=== PATIENT | male | born 1975 | race Caucasian/White ===

== ENCOUNTER 2019-09-26 01:59 | Emergency (ER) | payer MEDICAID, OTHER ==
[~2019-09-26] VITALS: Ht 198.1 cm; Wt 136.4 kg
[2019-09-26] MEDS ORDERED: MUPI22OI30 TOP (02:12)
[2019-09-26] MEDS ORDERED: PRED10TA23 PO (02:12)
[2019-09-26] MEDS ORDERED: triamcinolone acetonide 40mg/ml inj IM ONE (02:25)
[2019-09-26 02:33] VITALS: BP 152/97
== END 2019-09-26 02:35 | disposition home or self-care (01) ==
LOC: ER 01:59
DX: R21 Rash and other nonspecific skin eruption (principal); Z79.899 Other long term (current) drug therapy
CPT/HCPCS: 96372; 99283; J3301

== ENCOUNTER 2019-11-17 01:45 | Inpatient (IN) | payer MEDICAID ==
[~2019-11-17] VITALS: Ht 198.1 cm; Wt 140.0 kg
[2019-11-17] MEDS ORDERED: ibuprofen tablet 400 MG TABLET PO ONE (02:50)
--- NOTE | 2019-11-17 03:35 | NUR ---
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
[2019-11-17 04:30] LABS: BASOPHILS # (AUTO) 0.3 X10'3 (0-0.2); BASOPHILS % (AUTO) 1.6 % (0-1); EOSINOPHILS # (AUTO) 1.1 X10'3 (0-0.9); EOSINOPHILS % (AUTO) 6.5 % (0-6); HEMATOCRIT 46.3 % (42.0-52.0); HEMOGLOBIN 15.4 g/dl (14.0-17.9); LYMPHOCYTES # (AUTO) 3.7 X10'3 (1.1-4.8); MEAN CORPUSCULAR HGB CONC 33.3 g/dL (33.0-36.5); MEAN CORPUSCULAR VOLUME 92.9 FL (78-98); MEAN PLATELET VOLUME 9.3 FL (7.4-10.4); MONOCYTES # (AUTO) 1.8 X10'3 (0-0.9); NEUTROPHILS # (AUTO) 9.9 X10'3 (1.8-7.7); NEUTROPHILS % (AUTO) 58.9 % (42-75); PLATELET COUNT 310 X10'3 (140-440); RED BLOOD COUNT 4.99 X10'6 (4.70-6.10); WHITE BLOOD COUNT 16.8 X10'3 (4.5-11.0)
[2019-11-17 04:43] LABS: D-DIMER 3.89 MG/L FEU (0-0.50); PARTIAL THROMBOPLASTIN TIME 29 SECONDS (22-32)
[2019-11-17 04:45] LABS: ALANINE AMINOTRANSFERASE 19 U/L (12-78); ALBUMIN 3.2 G/DL (3.4-5.0); ALBUMIN/GLOBULIN RATIO 0.8 (1.1-1.5); ALKALINE PHOSPHATASE 102 IU/L (46-116); ANION GAP 7 (8-16); ASPARTATE AMINO TRANSFERASE 20 U/L (10-37); BILIRUBIN,TOTAL 0.4 MG/DL (0.1-1.0); BLOOD UREA NITROGEN 23 MG/DL (7-18); BUN/CREATININE RATIO 21.3 (5.4-32.0); CALCIUM 8.9 MG/DL (8.5-10.1); CHLORIDE 107 MMOL/L (99-107); CREATININE 1.08 MG/DL (0.60-1.10); GLUCOSE 123 MG/DL (70-104); SODIUM 140 MMOL/L (135-145); TOTAL CARBON DIOXIDE 26.3 MMOL/L (24-32); TOTAL PROTEIN 7.4 G/DL (6.4-8.2); eGFR 74 ML/MIN
[2019-11-17] MEDS ORDERED: iohexol 350MG/ML 100ml bottle IV ONE (05:11)
[2019-11-17] MEDS ORDERED: heparin 10,000 units/1 ML INJ IV ONE ×2 (06:20→06:30)
[2019-11-17] MEDS: heparin 25,000 UNIT/250ml bag 250 ML IV SCH ×4 (06:40→20:33)
--- NOTE | 2019-11-17 07:15 | NUR ---
Assessed patient, denies pain and expressed how tired he was. Closed door to let patient sleep.
[2019-11-17] MEDS: normal saline 1000ml 1,000 ML IV SCH ×2 (08:13→20:34)
[2019-11-17] MEDS ORDERED: morphine 2 MG/ML inj. syringe IV PRN (08:15)
[2019-11-17] MEDS ORDERED: mag hydrox/Alum hydrox/simeth 30ml oral suspension PO PRN (08:15)
[2019-11-17] MEDS ORDERED: acetaminophen 325mg tablet PO PRN (08:15)
[2019-11-17] MEDS ORDERED: ondansetron/PF 4mg/2ml inj IV PRN (08:15)
[2019-11-17] MEDS ORDERED: magnesium hydroxide 30ml (MOM) UD suspension PO PRN (08:15)
[2019-11-17] MEDS ORDERED: LISI-604 PO (08:45)
--- NOTE | 2019-11-17 08:47 | NUR ---
Patient resting in bed with eyes closed. Will begin IVF's once he's awake.
--- NOTE | 2019-11-17 09:15 | NUR ---
Patient in room ED 6. I have received report from Marilynn LEIJA and had the opportunity to ask questions and assume patient care.
--- NOTE | 2019-11-17 09:20 | NUR ---
Called report to Landon LEIJA, patient to tx to room 3020 A.
--- NOTE | 2019-11-17 09:33 | NUR ---
Escorted up to tele room 3020 A at this time.
--- NOTE | 2019-11-17 09:34 | NUR ---
Received report from ED nurse and now awaiting Pt's arrival to room 3020.
--- NOTE | 2019-11-17 09:56 | NUR ---
Pt arrived to room. Pt oriented to room and call light light. Pt's vitals stable.
[2019-11-17 11:00] VITALS: BP 150/85
--- NOTE | 2019-11-17 13:30 | NUR ---
Pt's PTT 102. Holding Heparin infusion for 1 hour and then will decrease rate to 1800units/hour.
[2019-11-17 15:00] VITALS: BP 158/91
[2019-11-17 18:00] VITALS: BP 171/107
--- NOTE | 2019-11-17 18:00 | NUR ---
Orientee documentation: I have reviewed and agree with all interventions, assessments performed and documented by Darcie LEIJA.
--- NOTE | 2019-11-17 18:11 | NUR ---
Patient in room PCU 3020. I have received report from Darcie Rn and Landon RN and had the opportunity to ask questions and assume patient care.
--- NOTE | 2019-11-17 18:19 | NUR ---
Problems reprioritized. Patient report given, questions answered & plan of care reviewed with Jeanette LEIJA.
[2019-11-17 18:45] VITALS: BP 144/86
[2019-11-17 22:00] VITALS: BP 140/89
[2019-11-17] MEDS: HYDROcodone/acetaminophen 5mg/325mg tablet PO PRN (23:54)
[2019-11-18 01:46] LABS: BASOPHILS # (AUTO) 0.2 X10'3 (0-0.2); BASOPHILS % (AUTO) 1.3 % (0-1); EOSINOPHILS # (AUTO) 1.2 X10'3 (0-0.9); EOSINOPHILS % (AUTO) 6.8 % (0-6); HEMATOCRIT 47.5 % (42.0-52.0); HEMOGLOBIN 15.6 g/dl (14.0-17.9); LYMPHOCYTES # (AUTO) 4.8 X10'3 (1.1-4.8); LYMPHOCYTES % (AUTO) 26.9 % (21-51); MEAN CORPUSCULAR HEMOGLOBIN 30.7 PG (27.0-31.0); MEAN CORPUSCULAR HGB CONC 32.8 g/dL (33.0-36.5); MEAN CORPUSCULAR VOLUME 93.5 FL (78-98); MONOCYTES # (AUTO) 1.8 X10'3 (0-0.9); MONOCYTES % (AUTO) 10.1 % (2-12); NEUTROPHILS # (AUTO) 9.7 X10'3 (1.8-7.7); NEUTROPHILS % (AUTO) 54.9 % (42-75); PLATELET COUNT 291 X10'3 (140-440); RED BLOOD COUNT 5.08 X10'6 (4.70-6.10); RED CELL DISTRIBUTION WIDTH 14.2 % (11.5-14.5); WHITE BLOOD COUNT 17.7 X10'3 (4.5-11.0)
[2019-11-18 01:49] LABS: ALBUMIN 2.9 G/DL (3.4-5.0); ANION GAP 8 (8-16); BLOOD UREA NITROGEN 20 MG/DL (7-18); BUN/CREATININE RATIO 20.8 (5.4-32.0); CALCIUM 8.7 MG/DL (8.5-10.1); CHLORIDE 108 MMOL/L (99-107); CREATININE 0.96 MG/DL (0.60-1.10); GLUCOSE 88 MG/DL (70-104); POTASSIUM 3.9 MMOL/L (3.5-5.1); SODIUM 141 MMOL/L (135-145); eGFR 84 ML/MIN
[2019-11-18] MEDS: normal saline 1000ml 1,000 ML IV SCH ×3 (04:13→19:48)
--- NOTE | 2019-11-18 05:59 | NUR ---
Patient in room PCU 3020. I have received report from HELADIO Bautista and had the opportunity to ask questions and assume patient care.
[2019-11-18 06:00] VITALS: BP 132/81
--- NOTE | 2019-11-18 06:10 | NUR ---
Patient in room PCU 3020. I have received report from Jeanette LEIJA and had the opportunity to ask questions and assume patient care. Patient laying in bed, awake, alert, no signs of distress, no complaints at this time. Will continue to monitor.
--- NOTE | 2019-11-18 06:58 | NUR ---
Patient in room PCU 3020. I have received report from Lily LEIJA and had the opportunity to ask questions and assume patient care.
[2019-11-18] MEDS: lisinopril 5mg tablet PO SCH (07:43)
[2019-11-18] MEDS: HYDROcodone/acetaminophen 5mg/325mg tablet PO PRN (07:43)
[2019-11-18] MEDS: clindamycin 150mg capsule PO SCH ×2 (14:00→19:49)
[2019-11-18] MEDS: ibuprofen tablet 400 MG TABLET PO PRN ×2 (14:16→21:01)
[2019-11-18] MEDS: heparin 10,000 units/1 ML INJ IV PRN (14:37)
[2019-11-18] MEDS: heparin 25,000 UNIT/250ml bag 250 ML IV SCH ×2 (14:38→22:17)
[2019-11-18 15:00] VITALS: BP 114/67
[2019-11-18 15:04] VITALS: BP 114/67
[2019-11-18 18:00] VITALS: BP 135/83
--- NOTE | 2019-11-18 18:00 | NUR ---
Student Medication Administration: For this medication-pass time frame, all medication were reviewed, dispensed, administered and documented per hospital policy by Patricia. Student documentation: I have reviewed and agree with all interventions, assessments performed and documented by Patricia BRAVO.
--- NOTE | 2019-11-18 18:30 | NUR ---
Problems reprioritized. Patient report given, questions answered & plan of care reviewed with Sasha LEIJA.
--- NOTE | 2019-11-18 18:58 | NUR ---
Patient in room PCU 3020. I have received report from Lily Cameron RN and had the opportunity to ask questions and assume patient care.
[2019-11-18 22:00] VITALS: BP 126/57
[2019-11-19] MEDS: clindamycin 150mg capsule PO SCH ×3 (01:41→13:11)
[2019-11-19 02:00] VITALS: BP 118/70
[2019-11-19] MEDS: HYDROcodone/acetaminophen 5mg/325mg tablet PO PRN (04:10)
[2019-11-19] MEDS: normal saline 1000ml 1,000 ML IV SCH (04:11)
[2019-11-19 05:17] LABS: BASOPHILS # (AUTO) 0.3 X10'3 (0-0.2); BASOPHILS % (AUTO) 1.6 % (0-1); EOSINOPHILS # (AUTO) 1.1 X10'3 (0-0.9); HEMATOCRIT 44.5 % (42.0-52.0); HEMOGLOBIN 15.2 g/dl (14.0-17.9); LYMPHOCYTES # (AUTO) 5.1 X10'3 (1.1-4.8); LYMPHOCYTES % (AUTO) 32.7 % (21-51); MEAN CORPUSCULAR HEMOGLOBIN 31.5 PG (27.0-31.0); MEAN CORPUSCULAR HGB CONC 34.2 g/dL (33.0-36.5); MEAN CORPUSCULAR VOLUME 91.9 FL (78-98); MEAN PLATELET VOLUME 9.1 FL (7.4-10.4); MONOCYTES # (AUTO) 1.6 X10'3 (0-0.9); MONOCYTES % (AUTO) 10.3 % (2-12); NEUTROPHILS # (AUTO) 7.6 X10'3 (1.8-7.7); NEUTROPHILS % (AUTO) 48.4 % (42-75); PLATELET COUNT 305 X10'3 (140-440); RED BLOOD COUNT 4.84 X10'6 (4.70-6.10); RED CELL DISTRIBUTION WIDTH 13.6 % (11.5-14.5); WHITE BLOOD COUNT 15.6 X10'3 (4.5-11.0)
[2019-11-19 05:20] LABS: ALBUMIN 2.8 G/DL (3.4-5.0); ANION GAP 4 (8-16); BLOOD UREA NITROGEN 17 MG/DL (7-18); BUN/CREATININE RATIO 16.7 (5.4-32.0); CALCIUM 8.4 MG/DL (8.5-10.1); CHLORIDE 110 MMOL/L (99-107); CREATININE 1.02 MG/DL (0.60-1.10); GLUCOSE 101 MG/DL (70-104); POTASSIUM 3.9 MMOL/L (3.5-5.1); SODIUM 142 MMOL/L (135-145); TOTAL CARBON DIOXIDE 27.7 MMOL/L (24-32); eGFR 79 ML/MIN
[2019-11-19] MEDS: heparin 10,000 units/1 ML INJ IV PRN (05:50)
[2019-11-19] MEDS: heparin 25,000 UNIT/250ml bag 250 ML IV SCH (05:51)
[2019-11-19 06:00] VITALS: BP 140/68
--- NOTE | 2019-11-19 06:00 | NUR ---
Patient in room PCU 3020. I have received report from Sasha LEIJA and had the opportunity to ask questions and assume patient care.
--- NOTE | 2019-11-19 06:16 | NUR ---
Problems reprioritized. Patient report given, questions answered & plan of care reviewed with HELADIO Navarrete.
--- NOTE | 2019-11-19 06:45 | NUR ---
Patient in room PCU 3020. I have received report from shift supervisor rn RN and had the opportunity to ask questions and assume patient care.
[2019-11-19] MEDS: lisinopril 5mg tablet PO SCH (07:04)
[2019-11-19] MEDS ORDERED: apixaban 5mg tablet PO ONE (10:15)
--- NOTE | 2019-11-19 10:30 | NUR ---
Per Dr. Moore; Give Pt 10mg Eliquis and then turn Heparin gtt off.
[2019-11-19] MEDS ORDERED: CLIN-97 PO (11:32)
[2019-11-19] MEDS ORDERED: APIX5TAB3 PO (11:32)
[2019-11-19 11:55] VITALS: BP 154/70
--- NOTE | 2019-11-19 13:02 | NUR ---
Pt ambulated 600 ft on RA with no assistive devices. Pt tolerated well. Minor SOB
--- NOTE | 2019-11-19 13:40 | NUR ---
Pt DC'd home with . IV removed, canula intact. Tele-box removed and returned to [employer]. Pt stable and vtals WNL upon DC. Pt alert and oriented. DC paperwork gone over [facility] Pt, allowed pt to ask questions concerning DC answer them. [facility] Addendum: 11/19/19 at 1414 by Landon Tapia RN Pt DC'd home with . IV removed, canula intact. Tele-box removed and returned to [employer]. Pt stable and vtals WNL upon DC. Pt alert and oriented. DC paperwork gone over [facility] Pt, allowed pt to ask questions concerning DC answer them. New medications sent to [facility] on [address]. Pt informed and educated about new medications as to when to take them next and what to expect. [facility] will call Pt to make follow up appt. Pt educated to refrain from heavy lifting and excerting himself while on blood thinners with Everardo. PE's and LLE DVT. Pt's belongings gathered and sent with Pt. Pt wheeled down to lobby in wheelchair by nurse. Pt left in private vehicle with for home.
[2019-11-19] MEDS ORDERED: lactobacillus rhamnosus 10,000 MMU CELLS/CAPSULE PO SCH (20:00)
== END 2019-11-19 13:35 | disposition home or self-care (01) | DRG 197 ==
LOC: ER 01:46 → ED HOLD 08:13 → PCU 3S 09:40 → UNDODISIN 09:52
PROVIDERS: ADMIT Family Medicine; ATTEND Family Medicine
PROC: B32T1ZZ Computerized Tomography (CT Scan) of Left Pulmonary Artery using Low Osmolar Contrast (ICD-10-PCS; principal; 2019-11-17)
PROC: B3201ZZ Computerized Tomography (CT Scan) of Thoracic Aorta using Low Osmolar Contrast (ICD-10-PCS; 2019-11-17)
PROC: B32S1ZZ Computerized Tomography (CT Scan) of Right Pulmonary Artery using Low Osmolar Contrast (ICD-10-PCS; 2019-11-17)
DX: I82.432 Acute embolism and thrombosis of left popliteal vein (principal); I26.99 Other pulmonary embolism without acute cor pulmonale; D72.829 Elevated white blood cell count, unspecified; I10 Essential (primary) hypertension; L01.00 Impetigo, unspecified; I82.442 Acute embolism and thrombosis of left tibial vein
CPT/HCPCS: 36415; 71045; 71275; 80048; 80053; 85025; 85379; 85610; 85730; 87070; 87077; 87081; 87186; 93005; 93306; 93971; 99285; G0378; J1644; J7030; Q9967

== ENCOUNTER 2019-11-30 11:00 | Outpatient (CLI) | payer MEDICAID ==
[~2019-11-30 11:00] MED LIST: APIX5TAB3 PO; CLIN-97 PO; LISI-604 PO
== END 2019-11-30 11:50 | disposition home or self-care (01) ==
LOC: EDSTATUS 11:00 → WOUND CARE 11:00
PROVIDERS: ATTEND Nurse Practitioner
DX: I82.409 Acute embolism and thrombosis of unspecified deep veins of unspecified lower extremity (principal); R21 Rash and other nonspecific skin eruption; I10 Essential (primary) hypertension; L01.00 Impetigo, unspecified; Z86.718 Personal history of other venous thrombosis and embolism
CPT/HCPCS: G0463

== ENCOUNTER 2019-12-17 20:36 | Emergency (ER) | payer MEDICAID ==
[~2019-12-17] VITALS: Ht 198.1 cm; Wt 140.9 kg
[2019-12-17 21:20] LABS: BASOPHILS # (AUTO) 0.2 X10'3 (0-0.2); EOSINOPHILS # (AUTO) 0.3 X10'3 (0-0.9); HEMATOCRIT 44.5 % (42.0-52.0); HEMOGLOBIN 14.7 g/dl (14.0-17.9); LYMPHOCYTES % (AUTO) 34.3 % (21-51); MEAN CORPUSCULAR HEMOGLOBIN 30.7 PG (27.0-31.0); MEAN CORPUSCULAR HGB CONC 33.1 g/dL (33.0-36.5); MEAN CORPUSCULAR VOLUME 92.7 FL (78-98); MEAN PLATELET VOLUME 8.4 FL (7.4-10.4); MONOCYTES # (AUTO) 1.8 X10'3 (0-0.9); MONOCYTES % (AUTO) 10.4 % (2-12); NEUTROPHILS # (AUTO) 9.1 X10'3 (1.8-7.7); NEUTROPHILS % (AUTO) 52.3 % (42-75); PLATELET COUNT 325 X10'3 (140-440); RED CELL DISTRIBUTION WIDTH 14.5 % (11.5-14.5); WHITE BLOOD COUNT 17.4 X10'3 (4.5-11.0)
[2019-12-17 21:29] LABS: ALANINE AMINOTRANSFERASE 63 U/L (12-78); ALBUMIN/GLOBULIN RATIO 0.8 (1.1-1.5); ALKALINE PHOSPHATASE 93 IU/L (46-116); ANION GAP 4 (8-16); ASPARTATE AMINO TRANSFERASE 25 U/L (10-37); BILIRUBIN,TOTAL 0.4 MG/DL (0.1-1.0); BLOOD UREA NITROGEN 23 MG/DL (7-18); BUN/CREATININE RATIO 20.5 (5.4-32.0); CALCIUM 8.5 MG/DL (8.5-10.1); CHLORIDE 106 MMOL/L (99-107); CREATININE 1.12 MG/DL (0.60-1.10); GLUCOSE 140 MG/DL (70-104); POTASSIUM 4.2 MMOL/L (3.5-5.1); SODIUM 139 MMOL/L (135-145); TOTAL CARBON DIOXIDE 28.6 MMOL/L (24-32); TOTAL PROTEIN 6.6 G/DL (6.4-8.2); eGFR 71 ML/MIN
[2019-12-17] MEDS ORDERED: normal saline 1000ML IV soln IVB ONE (21:40)
--- NOTE | 2019-12-17 21:44 | NUR ---
[facility]ASC CALLED BACK AT 21:43 WILL BE HERE IN 30 MINS OR LESS
[2019-12-17] MEDS ORDERED: apixaban 5mg tablet PO STA (22:40)
[2019-12-18 01:44] VITALS: BP 132/78
== END 2019-12-18 01:48 | disposition home or self-care (01) ==
LOC: ER 20:36
DX: R07.9 Chest pain, unspecified (principal); R06.02 Shortness of breath; I10 Essential (primary) hypertension; Z98.890 Other specified postprocedural states; Z79.2 Long term (current) use of antibiotics; Z79.899 Other long term (current) drug therapy
CPT/HCPCS: 36415; 71045; 80053; 84484; 85025; 93005; 93971; 99285; J7030

== ENCOUNTER 2020-10-04 17:24 | Emergency (ER) | payer MEDICAID ==
[~2020-10-04] VITALS: Ht 198.1 cm; Wt 147.4 kg
[~2020-10-04 17:24] MED LIST changes: -LISI-604 PO; +LISI-790 PO
[2020-10-04 18:31] LABS: BASOPHILS # (AUTO) 0.2 X10'3 (0-0.2); BASOPHILS % (AUTO) 1.4 % (0-1); EOSINOPHILS # (AUTO) 0.7 X10'3 (0-0.9); EOSINOPHILS % (AUTO) 4.9 % (0-6); HEMATOCRIT 48.2 % (42.0-52.0); HEMOGLOBIN 16.3 g/dl (14.0-17.9); LYMPHOCYTES # (AUTO) 4.4 X10'3 (1.1-4.8); LYMPHOCYTES % (AUTO) 29.1 % (21-51); MEAN CORPUSCULAR HEMOGLOBIN 31.1 PG (27.0-31.0); MEAN CORPUSCULAR HGB CONC 33.8 g/dL (33.0-36.5); MEAN PLATELET VOLUME 9.4 FL (7.4-10.4); MONOCYTES # (AUTO) 1.5 X10'3 (0-0.9); MONOCYTES % (AUTO) 9.7 % (2-12); NEUTROPHILS # (AUTO) 8.3 X10'3 (1.8-7.7); NEUTROPHILS % (AUTO) 54.9 % (42-75); PLATELET COUNT 374 X10'3 (140-440); RED BLOOD COUNT 5.24 X10'6 (4.70-6.10); RED CELL DISTRIBUTION WIDTH 14.2 % (11.5-14.5); WHITE BLOOD COUNT 15.1 X10'3 (4.5-11.0)
[2020-10-04 18:41] LABS: ALANINE AMINOTRANSFERASE 26 U/L (12-78); ALBUMIN 3.6 G/DL (3.4-5.0); ALBUMIN/GLOBULIN RATIO 0.8 (1.1-1.5); ALKALINE PHOSPHATASE 107 IU/L (46-116); ANION GAP 10 (8-16); ASPARTATE AMINO TRANSFERASE 26 U/L (10-37); BILIRUBIN,TOTAL 0.4 MG/DL (0.1-1.0); BLOOD UREA NITROGEN 20 MG/DL (7-18); BUN/CREATININE RATIO 19.2 (5.4-32.0); CHLORIDE 103 MMOL/L (99-107); CREATININE 1.04 MG/DL (0.60-1.10); GLUCOSE 133 MG/DL (70-104); POTASSIUM 3.9 MMOL/L (3.5-5.1); SODIUM 139 MMOL/L (135-145); TOTAL CARBON DIOXIDE 26.1 MMOL/L (24-32); TOTAL PROTEIN 8.2 G/DL (6.4-8.2); eGFR 77 ML/MIN
[2020-10-04 20:47] LABS: D-DIMER 0.32 MG/L FEU (0-0.50)
[2020-10-04] MEDS ORDERED: DOXY100C43 PO (21:00)
[2020-10-04] MEDS ORDERED: ALBU8.5H8 IH (21:00)
[2020-10-04] MEDS ORDERED: PRED20TA PO (22:10)
[2020-10-04 22:43] VITALS: BP 147/98
== END 2020-10-04 22:25 | disposition home or self-care (01) ==
LOC: ER 17:24
DX: R07.89 Other chest pain (principal); J40 Bronchitis, not specified as acute or chronic; R06.02 Shortness of breath; R53.83 Other fatigue; I10 Essential (primary) hypertension; Z86.711 Personal history of pulmonary embolism; Z86.718 Personal history of other venous thrombosis and embolism; Z98.890 Other specified postprocedural states; Z79.2 Long term (current) use of antibiotics; Z79.899 Other long term (current) drug therapy
CPT/HCPCS: 36415; 71045; 71250; 80053; 83880; 84484; 85025; 85379; 93005; 99285

== ENCOUNTER 2022-05-14 19:12 | Emergency (ER) | payer MEDICAID ==
[~2022-05-14] VITALS: Ht 195.6 cm; Wt 143.9 kg
[~2022-05-14 19:12] MED LIST changes: +ALBU8.5H17 IH; -LISI-790 PO; +LISI5TAB22 PO
[2022-05-14 19:15] VITALS: BP 118/99
== END 2022-05-14 22:57 | disposition left against medical advice (07) ==
LOC: ER 19:13
DX: J00 Acute nasopharyngitis [common cold] (principal); R05.9 Cough, unspecified; R09.89 Other specified symptoms and signs involving the circulatory and respiratory systems; Z53.21 Procedure and treatment not carried out due to patient leaving prior to being seen by health care provider

== ENCOUNTER 2022-09-21 14:32 | Emergency (ER) | payer MEDICAID ==
[~2022-09-21] VITALS: Ht 198.1 cm; Wt 129.8 kg
[2022-09-21 14:42] VITALS: BP 149/89
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
[2022-09-21] MEDS ORDERED: ketorolac trometh inj. 60 MG/2 ML VIAL IM ONE (15:35)
[2022-09-21] MEDS ORDERED: diazepam 5mg tablet PO ONE (15:35)
[2022-09-21] MEDS ORDERED: TIZA-189 PO (15:39)
[2022-09-21] MEDS ORDERED: TEMA7.5C PO (15:39)
== END 2022-09-21 15:26 | disposition home or self-care (01) ==
LOC: ER 14:32
DX: M54.2 Cervicalgia (principal); M25.519 Pain in unspecified shoulder; I10 Essential (primary) hypertension; V49.9XXA Car occupant (driver) (passenger) injured in unspecified traffic accident, initial encounter; Y93.89 Activity, other specified; Y92.89 Other specified places as the place of occurrence of the external cause; Y99.8 Other external cause status
CPT/HCPCS: 96372; 99283; J1885

== ENCOUNTER 2023-04-08 20:14 | Emergency (ER) | payer MEDICAID ==
[~2023-04-08] VITALS: Ht 198.1 cm; Wt 140.7 kg
[~2023-04-08 20:14] MED LIST changes: +TEMA7.5C PO; +TIZA-189 PO
[2023-04-08 21:03] LABS: ALANINE AMINOTRANSFERASE 21 U/L (12-78); ALBUMIN 3.7 G/DL (3.4-5.0); ALBUMIN/GLOBULIN RATIO 0.9 (1.1-1.5); ALKALINE PHOSPHATASE 84 IU/L (46-116); ANION GAP 6 (8-16); ASPARTATE AMINO TRANSFERASE 17 U/L (10-37); BILIRUBIN,TOTAL 0.4 MG/DL (0.1-1.0); BLOOD UREA NITROGEN 21 MG/DL (7-18); BUN/CREATININE RATIO 19.4 (10.0-20.0); CALCIUM 9.2 MG/DL (8.5-10.1); CHLORIDE 103 MMOL/L (99-107); CREATININE 1.08 MG/DL (0.60-1.10); GLUCOSE 94 MG/DL (70-104); POTASSIUM 4.1 MMOL/L (3.5-5.1); SODIUM 140 MMOL/L (135-145); TOTAL CARBON DIOXIDE 30.6 MMOL/L (24-32); TOTAL PROTEIN 7.8 G/DL (6.4-8.2); eCRCL 106 ML/MIN; eGFR 72 ML/MIN
[2023-04-08 21:11] LABS: LIPASE 44 U/L (16-77)
--- NOTE | 2023-04-08 21:19 | NUR ---
CALL FROM LAB RECEIVED. LAB REDRAW NEEDED DUE TO BLOOD HEMOLYZED. PT CURRENTLY IN LOBBY. LAB NOTIFIED.
[2023-04-08 23:12] LABS: BILIRUBIN,URINE NEGATIVE (Neg); CLARITY,URINE CLEAR (Clear); COLOR,URINE YELLOW (Yellow); GLUCOSE, URINE NEGATIVE (Neg); KETONES,URINE NEGATIVE (Neg); LEUKOCYTE ESTERASE ,URINE NEGATIVE (Neg); NITRITES, URINE NEGATIVE (Neg); OCCULT BLOOD,URINE NEGATIVE (Neg); PROTEIN,URINE NEGATIVE (Neg); UROBILINOGEN,URINE 0.2 E.U/dL (0.2-1.0)
[2023-04-08 23:24] LABS: BASOPHILS % (AUTO) 0.2 % (0-1); EOSINOPHILS # (AUTO) 0.6 X10'3 (0-0.9); EOSINOPHILS % (AUTO) 3.7 % (0-6); HEMATOCRIT 46.4 % (42.0-52.0); HEMOGLOBIN 15.4 g/dl (14.0-17.9); LYMPHOCYTES % (AUTO) 24.5 % (21-51); MEAN CORPUSCULAR HEMOGLOBIN 30.6 PG (27.0-31.0); MEAN CORPUSCULAR HGB CONC 33.3 g/dL (33.0-36.5); MEAN PLATELET VOLUME 8.9 FL (7.4-10.4); MONOCYTES # (AUTO) 1.6 X10'3 (0-0.9); MONOCYTES % (AUTO) 9.7 % (2-12); NEUTROPHILS % (AUTO) 61.9 % (42-75); PLATELET COUNT 323 X10'3 (140-440); RED BLOOD COUNT 5.04 X10'6 (4.70-6.10); RED CELL DISTRIBUTION WIDTH 14.6 % (11.5-14.5); WHITE BLOOD COUNT 16.2 X10'3 (4.5-11.0)
[2023-04-08 23:33] LABS: UA COLLECTION TYPE CLN CATCH MIDSTREAM
[2023-04-08] MEDS ORDERED: hydrocortisone acetate 25mg rectal suppository RC PRN (23:55)
[2023-04-08] MEDS ORDERED: pantoprazole 40mg IV 80 MG in normal saline 100ml IV soln 100 ML IV ONE (23:55)
[2023-04-08] MEDS ORDERED: morphine 4 MG/ML inj SYRINge IV PRN (23:55)
[2023-04-08] MEDS ORDERED: ondansetron/PF 4mg/2ml inj IV ONE (23:55)
[2023-04-08] MEDS ORDERED: normal saline 1000ML IV soln IVB ONE (23:55)
[2023-04-08] MEDS ORDERED: iohexol 300mg/ml 100ml inj. ONE (23:58)
[2023-04-09] MEDS ORDERED: pantoprazole 40MG/NS 100ML BAG 100 ML IV ONE ×2 (00:10→00:25)
[2023-04-09 00:23] LABS: URINE AMPHETAMINE SCREEN NEGATIVE (Neg); URINE BARBITUATE SCREEN NEGATIVE (Neg); URINE BENZODIAZEPINES SCREEN NEGATIVE (Neg); URINE CANNABINOID SCREEN POSITIVE (Neg); URINE COCAINE SCREEN NEGATIVE (Neg); URINE OPIATE SCREEN NEGATIVE (Neg); URINE PHENCYCLIDINE SCREEN NEGATIVE (Neg)
[2023-04-09] MEDS ORDERED: METF-436 PO (00:45)
[2023-04-09] MEDS ORDERED: MYCO500T5 PO (00:45)
[2023-04-09] MEDS ORDERED: hydrocortisone acetate 25mg rectal suppository RC PRN (01:00)
[2023-04-09 04:30] VITALS: BP 136/91; PULSE 58; RESP 16; TEMP 98; O2SAT 98
[2023-04-09] MEDS ORDERED: levoFLOXACIN 500mg tablet PO ONE (04:40)
[2023-04-09] MEDS ORDERED: metroNIDAZOLE 500mg tablet PO ONE (04:40)
[2023-04-09] MEDS ORDERED: METO-292 PO (04:43)
[2023-04-09] MEDS ORDERED: LEVO-65 PO (04:43)
[2023-04-09] MEDS ORDERED: METR-159 PO (04:43)
[2023-04-09] MEDS ORDERED: ACET-1025 PO (04:43)
[2023-04-09] MEDS ORDERED: DICY10CA88 PO (04:43)
== END 2023-04-09 05:17 | disposition home or self-care (01) ==
LOC: ER 20:15
DX: R10.32 Left lower quadrant pain (principal)
CPT/HCPCS: 36415; 74177; 80053; 80305; 81003; 83605; 83690; 85025; 96365; 96375; 96376; 99285; C9113; J2405; J3490; J7030; Q9967

== ENCOUNTER 2024-06-13 20:01 | Emergency (ER) | payer MEDICAID ==
[~2024-06-13] VITALS: Ht 198.1 cm; Wt 136.5 kg
[~2024-06-13 20:01] MED LIST changes: -CLIN-97 PO; +DICY10CA88 PO; +METF-436 PO; +METO-292 PO; +MYCO500T5 PO; -TEMA7.5C PO; -TIZA-189 PO
[2024-06-13 20:03] VITALS: BP 141/87; PULSE 93; RESP 16; TEMP 97.7; O2SAT 98
[2024-06-13 20:56] LABS: EOSINOPHILS # (AUTO) 0.6 X10'3 (0-0.9); MEAN CORPUSCULAR HEMOGLOBIN 30.5 PG (27.0-31.0); MONOCYTES # (AUTO) 1.1 X10'3 (0-0.9)
[2024-06-13 20:58] LABS: BASOPHILS # (AUTO) 0.1 X10'3 (0-0.2); BASOPHILS % (AUTO) 0.5 % (0-1); EOSINOPHILS % (AUTO) 4.2 % (0-6); HEMATOCRIT 48.5 % (42.0-52.0); HEMOGLOBIN 16.1 g/dl (14.0-17.9); LYMPHOCYTES # (AUTO) 3.4 X10'3 (1.1-4.8); LYMPHOCYTES % (AUTO) 24.6 % (21-51); MEAN CORPUSCULAR HGB CONC 33.3 g/dL (33.0-36.5); MEAN CORPUSCULAR VOLUME 91.8 FL (78-98); MEAN PLATELET VOLUME 8.6 FL (7.4-10.4); MONOCYTES % (AUTO) 7.8 % (2-12); NEUTROPHILS # (AUTO) 8.7 X10'3 (1.8-7.7); NEUTROPHILS % (AUTO) 62.9 % (42-75); PLATELET COUNT 391 X10'3 (140-440); RED BLOOD COUNT 5.29 X10'6 (4.70-6.10); RED CELL DISTRIBUTION WIDTH 14.3 % (11.5-14.5); WHITE BLOOD COUNT 13.8 X10'3 (4.5-11.0)
[2024-06-13 21:04] LABS: ALBUMIN 3.7 G/DL (3.4-5.0); ANION GAP 4 (8-16); BLOOD UREA NITROGEN 18 MG/DL (7-18); BUN/CREATININE RATIO 16.8 (10.0-20.0); CHLORIDE 104 MMOL/L (99-107); CREATININE 1.07 MG/DL (0.60-1.10); GLUCOSE 134 MG/DL (70-104); POTASSIUM 4.1 MMOL/L (3.5-5.1); SODIUM 138 MMOL/L (135-145); TOTAL CARBON DIOXIDE 29.7 MMOL/L (24-32); eCRCL 106 ML/MIN; eGFR 73 ML/MIN
== END 2024-06-14 01:00 | disposition left against medical advice (07) ==
LOC: ER 20:02
DX: R22.1 Localized swelling, mass and lump, neck (principal); Z53.21 Procedure and treatment not carried out due to patient leaving prior to being seen by health care provider
CPT/HCPCS: 36415; 71046; 80048; 84145; 85025